=== PATIENT | male | born 1990 | race Caucasian/White ===

== ENCOUNTER 2025-04-03 11:43 | Emergency (ER) | payer SELFPAY ==
[~2025-04-03] VITALS: Ht 170.2 cm; Wt 63.0 kg
[2025-04-03 11:45] VITALS: O2SAT 100
[2025-04-03 11:54] VITALS: BP 130/84; PULSE 100; RESP 14; TEMP 36.7; O2SAT 100
== END 2025-04-03 13:24 | disposition left against medical advice (07) ==
LOC: ER 11:43
DX: R42 Dizziness and giddiness (principal); Z53.21 Procedure and treatment not carried out due to patient leaving prior to being seen by health care provider
CPT/HCPCS: 93005; Z7610 ×3